=== PATIENT | female | born 1985 | race Caucasian/White ===

== ENCOUNTER 2024-02-24 16:09 | Emergency (ER) | payer OTHER ==
[~2024-02-24] VITALS: Ht 160 cm; Wt 60.1 kg
[2024-02-24] MEDS ORDERED: TRAZ-252 PO (16:27)
[2024-02-24] MEDS ORDERED: NS 1,000 ML IV ONE (17:45)
[2024-02-24] MEDS: OXYMETAZOLINE 0.05% NASAL SPRAY (AFRIN) ONE (18:15)
[2024-02-24 19:45] LABS: BASO % 0.1 % (0.0-1.0); HEMATOCRIT 33.6 % (36.0-47.0); HEMOGLOBIN 11.7 g/dl (12.0-15.5); LYMPH # 0.6 10^3/uL (1.5-5.0); LYMPH % 5.1 % (24.0-44.0); MEAN CORPUSCULAR HEMOGLOBIN 30.8 pg (27.0-33.0); MEAN CORPUSCULAR HGB CONC 34.8 g/dl (32.0-36.5); MEAN CORPUSCULAR VOLUME 88.4 fl (80.0-96.0); MONO # 0.2 10^3/uL (0.0-0.8); MONO % 1.3 % (2.0-8.0); NEUTROPHILS # 11.2 10^3/uL (1.5-8.5); NEUTROPHILS % 93.2 % (36.0-66.0); PLATELET COUNT, AUTOMATED 271 10^3/uL (150-450)
[2024-02-24] MEDS ORDERED: AMOX875T2 PO (19:54)
[2024-02-24 20:00] LABS: INR 1.12; PARTIAL THROMBOPLASTIN TIME 28.6 SECONDS (24.8-34.2); PROTHROMBIN TIME 14.1 SECONDS (12.5-14.5)
[2024-02-24 20:10] LABS: BLOOD UREA NITROGEN 11 MG/DL (9-23); CALCIUM LEVEL 9.1 MG/DL (8.5-10.1); CARBON DIOXIDE LEVEL 24 MMOL/L (20-31); CHLORIDE LEVEL 108 MMOL/L (98-107); CREATININE FOR GFR 0.58 MG/DL (0.55-1.30); GLOMERULAR FILTRATION RATE > 60.0 (>60); GLUCOSE, FASTING 115 MG/DL (60-100); SODIUM LEVEL 138 MMOL/L (136-145)
[2024-02-24 20:12] VITALS: BP 124/62; TEMP 97.4; O2SAT 97
== END 2024-02-24 20:15 | disposition home or self-care (01) ==
LOC: M ED 16:09
DX: R04.0 Epistaxis (principal); F17.210 Nicotine dependence, cigarettes, uncomplicated; Z79.1 Long term (current) use of non-steroidal anti-inflammatories (NSAID); Z79.899 Other long term (current) drug therapy
CPT/HCPCS: 30901; 36415; 80048; 85025; 85610; 85730; 86850; 86900; 86901; 99283; A6024